=== PATIENT | male | born 1995 | race Caucasian/White ===

== ENCOUNTER 2024-04-09 13:39 | Emergency (ER) | payer SELFPAY ==
[2024-04-09] VITALS (13 sets, daily range): BP systolic 106–146; BP diastolic 58–119; BMI 40.4
[2024-04-09 14:37] LABS: % Basophils 0.5 % (0-2); % Eosinophils 0.9 % (0-6); % Immature Granulocytes 1.8 % (0-0.5); % Monocytes 7.6 % (1.7-9.3); % Neutrophils 51.2 % (42.2-75.2); Absolute Basophils 0.1 10^3/uL (0-0.2); Absolute Eosinophils 0.1 10^3/uL (0-0.7); Absolute Immature Granulocytes 0.2 10^3/uL (0-0.05); Absolute Lymphocytes 4.9 10^3/uL (1.2-3.4); Absolute Neutrophils 6.6 10^3/uL (1.4-6.5); Hematocrit 43.2 % (39.0-52.0); Hemoglobin 15.4 g/dL (13.0-18.0); Mean Corp Hgb Conc. 35.6 g/dL (33.0-37.0); Mean Corpuscular Hgb 28.4 pg (27.0-31.0); Mean Corpuscular Volume 79.6 fL (80.0-94.0); Mean Platelet Volume 8.9 fL (7.4-10.4); Nucleated Red Blood Cells % 0 % (-); Platelet Count 509 10^3/uL (130-400); Red Blood Cell Count 5.43 10^6/uL (4.70-6.10); Red Cell Dist. Width 13.2 % (11.5-14.5); White Blood Cell Count 12.9 10^3/uL (4.8-10.8)
--- NOTE | 2024-04-09 14:57 | ED.GENMED ---
History of Present Illness
General
Chief Complaint: Medication Reaction
Time Seen by Provider: 04/09/24 14:53
Travel History
Have you had any contact with someone who has COVID-19?: No
Do you have any symptoms of coronavirus? Fever > 100 degrees, chills, cough, shortness of breath, sore throat, loss of taste or smell, muscle aches, or headache?: No
History of Present Illness
History of Present Illness:
HPI: Patient took an edible at a higher dose than he typically does and shortly thereafter heart began pounding. His sister showed me a picture which showed it was '[employer] delta 9, 1250 mg' he took a small portion of this. He was also shaking.
Father states that he has been working a lot outside in the heat and frequently does sleep a lot at nighttime. Father feels that he does have undiagnosed LEEP apnea.
EXAM:
GENERAL:The patient appears somewhat sedate but eyes are open, he has some tremor noted to the upper extremities but not seizure activity,
HEENT: Moist oral mucosa, some nystagmus noted, mydriasis noted
CARDIOVASCULAR: No murmurs, tachycardic heart rate, regular rhythm, No chest wall tenderness
PULMONARY: No respiratory distress, breath sounds are clear and equal
ABDOMEN: Soft with no peritoneal signs, no tenderness
NEUROLOGIC: He has no focal neurologic deficits, see general exam above
PSYCHIATRIC: The patient appears to be somewhat sedate
EXTREMITIES: Nontender, no edema, moves all extremities equally
SKIN: No rash, no lesions
TIME OF INITIAL ENCOUNTER: 3 PM
NUMBER AND COMPLEXITY OF PROBLEMS ADDRESSED AT THE ENCOUNTER
� Chronic conditions affecting care: Has had pneumonia in the past
� Acute Exacerbation and/or Progression of Chronic Illness: This is an acute problem
� Differential Diagnosis includes: Edible adverse effect, dysrhythmia, electrolyte abnormality
AMOUNT AND/OR COMPLEXITY OF DATA TO BE REVIEWED AND ANALYZED
� I performed an independent evaluation of and my interpretation is:
EKG: Sinus 117, leftward axis deviation, nonspecific ST abnormality
CT: CT brain shows no acute abnormality
X-rays:
Laboratory Studies: White count 12.9, hemoglobin 15.4, troponin negative UDS positive for amphetamine and marijuana
Other:
� Review of other/old records: The patient was seen here in 2020 with with chest pain and had a negative troponin at that time
� Clinical information was obtained by an independent historian: Sister at bedside
� Prescriptions/Medications Considered but not given:
� Further testing considered but not performed:
RISK OF COMPLICATIONS AND/OR MORBIDITY OR MORTALITY OF PATIENT MANAGEMENT
� Social determinants of health affecting care: Lives at home
� Discussion with other providers:
� Escalation of care including admission/observation vs risk of discharge considered: Based on timing of symptoms, suspect the symptoms are related to the substance that he used earlier today. He was tachycardic upon arrival and
initially desat to the 80% was placed on nasal cannula oxygen briefly. Troponin negative. He is in a sinus rhythm. He was given Ativan as well as he does have tremor and has been tachycardic. On reassessment at 3:45 PM, vital signs improved
however the patient still has an altered mental status. Will continue to monitor. On reassessment at 7 PM, still rather altered. On reassessment at 9 PM, the patient was up walking around. ABG results reviewed. PaO2 very low however I talk to
respiratory and she states that the blood return was dark and came out slowly�suspect venous sample. pCO2 elevated which was drawn at the time he was more unresponsive. Currently he is awake talking and has reasonable insight and judgment. We did
talk about the possibility of sleep apnea as well.
Past History
Past History
ED Past Medical History: None
Social History
Personal: Single
Living: with family
Phy Exam
Physical Exam
Physical Exam:
See HPI
Course
Orders/Labs/Results
Orders:
Orders
04/09/24 13:50
Electrocardiogram (*1) Urgent
Reason for Study: Tachycardia
EKG- Treatment ONCE
04/09/24 14:27
IV Insert/Care/Rem.- Treatment PRN
04/09/24 14:29
Complete Blood Count/With Diff Urgent
Troponin I Urgent
04/09/24 14:58
Lorazepam [Ativan] 1 mg IV NOW STA
04/09/24 14:59
Comprehensive Metabolic Panel Urgent
04/09/24 15:03
0.9% Sodium Chloride 1000 ml [Nss] 1,000 ml IV BOLUS
0.9% Sodium Chloride 1000 ml [Nss] 1,000 ml IV BOLUS
04/09/24 17:10
CT Head W/o Iv Contrast Urgent
Comment:
Reason For Exam: altered mental status
04/09/24 17:11
Straight cath- Treatment ONCE
04/09/24 17:13
Drug Screen, Urine [Urine Drug Abuse Screen] Urgent
Date Specimen was Collected: 04/09/24
Time Specimen was Collected: 17:11
Fentanyl, Urine Urgent
04/09/24 19:57
ABG [Arterial Blood Gas] Urgent
%Oxygen/Room Air: 2lpm
Abnormal Lab Results
04/09/24 04/09/24 04/09/24
14:29 14:59 17:13
WBC 12.9 H 10^3/uL
(4.8-10.8)
MCV 79.6 L fL
(80.0-94.0)
Plt Count 509 H 10^3/uL
(130-400)
Abs Immat Gran (auto) 0.2 H 10^3/uL
(0-0.05)
Absolute Neuts (auto) 6.6 H 10^3/uL
(1.4-6.5)
Absolute Lymphs (auto) 4.9 H 10^3/uL
(1.2-3.4)
Absolute Monos (auto) 1.0 H 10^3/uL
(0.1-0.6)
Immature Gran % 1.8 H %
(0-0.5)
pH
pCO2
pO2
HCO3
ABG O2 Sat (Measured)
Glucose 175 H mg/dl
(70-99)
Total Protein 6.2 L g/dl
(6.3-8.2)
Ur Amphetamines Screen Positive H
(Negative)
U Marijuana (THC) Screen Positive H
(Negative)
04/09/24
19:57
WBC
MCV
Plt Count
Abs Immat Gran (auto)
Absolute Neuts (auto)
Absolute Lymphs (auto)
Absolute Monos (auto)
Immature Gran %
pH 7.34 L
(7.35-7.45)
pCO2 53 H mmHg
(35-48)
pO2 36 L* mmHg
(83-108)
HCO3 28.6 H mmol/L
(21-28)
ABG O2 Sat (Measured) 67.7 L %
(94-98)
Glucose
Total Protein
Ur Amphetamines Screen
U Marijuana (THC) Screen
04/09/24 14:29
04/09/24 14:59
Vital Signs
Initial and Last Documented VS:
Initial Vital Signs
Temp Pulse Resp BP Pulse Ox
98.8 F 124 16 141/93 97
04/09/24 13:46 04/09/24 13:46 04/09/24 13:46 04/09/24 13:46 04/09/24 13:46
Last Documented Vital Signs
Temp Pulse Resp BP Pulse Ox
98.8 F 96 21 144/79 95
04/09/24 13:46 04/09/24 20:29 04/09/24 20:29 04/09/24 21:00 04/09/24 21:00
*Critical Care Note
Total Time (30-74mins, 75-104mins- exclusive of procedures): 65min
comment:
I reassessed this patient multiple times throughout his stay in the ED. He was nearly unresponsive upon arrival. He was given supplemental oxygen, he had been protecting his airway. I reassessed the patient multiple times throughout his stay in
the ED. We initially did give a dose of benzos as he was tachycardic and somewhat tremulous. At 9 PM, the patient was reassessed and markedly improved.
ED Attending Note
-
Portions of this chart may have been created with voice recognition software.� Occasional wrong word or��sound alike� substitutions may have occurred due to the inherent limitations of voice recognition software.
Discharge Plan
Departure
Prescriptions:
No Action
No Current Medications
0
Referrals:
Carson Brewer DO [Family Provider] -
Interventions
Interventions:
*Risk Screen - Suicide Last Done: 04/09/24 14:20
*General Assessment Last Done: 04/09/24 14:20
*Neglect/Abuse Screening Last Done: 04/09/24 14:20
ED- Fall Risk Assessment Last Done: 04/09/24 14:20
*ED COVID-19 Vaccine History Last Done: 04/09/24 13:46
*Nursing Disposition Last Done: 04/09/24 21:06
ED-Skin Assessment Last Done: 04/09/24 14:20
ED- Pulmonary Assessment Last Done: 04/09/24 14:20
ED-EENT Assessment Last Done: 04/09/24 14:20
Discharge Date and Time
Print Language: ICELANDIC
[2024-04-09 15:01] LABS: Troponin I < 0.012 ng/ml
[2024-04-09] MEDS: ATIVAN 1 MG IV (15:06)
[2024-04-09] MEDS: NSS 1000 IV ×2 (15:06→15:07)
[2024-04-09 15:28] LABS: ALT (SGPT) 30 U/L (0-50); AST (SGOT) 25 U/L (17-59); Albumin 3.5 g/dl (3.5-5.0); Alkaline Phosphatase 62 U/L (38-126); Blood Urea Nitrogen 20 mg/dl (9-20); Calcium 8.7 mg/dl (8.4-10.2); Carbon Dioxide 27 mmol/L (22-30); Chloride 107 mmol/L (98-107); Estimated Creatinine Clearance > 125 ml/min; Glucose 175 mg/dl (70-99); Sodium 140 mmol/L (135-145); Total Bilirubin 0.4 mg/dl (0.2-1.3); Total Protein 6.2 g/dl (6.3-8.2); eGFR > 60.00
[2024-04-09 17:35] LABS: Amphetamines Positive (Negative); Barbiturates Negative (Negative); Benzodiazepines Negative (Negative); Buprenorphine Negative (Negative); Cocaine Negative (Negative); Marijuana Positive (Negative); Methadone Negative (Negative); Methamphetamines Negative (Negative); Opiates Negative (Negative); Phencyclidine Negative (Negative); Tricyclic Antidepressants Negative (Negative)
[2024-04-09 17:51] LABS: Fentanyl, Urine Negative (Negative)
[2024-04-09 20:08] LABS: B.E. 1.7 mmol/L; HCO3 28.6 mmol/L (21-28); O2 Saturation % 67.7 % (94-98); PCO2 53 mmHg (35-48); pH 7.34 (7.35-7.45)
[2024-04-09 20:11] LABS: PO2 36 mmHg (83-108)
== END 2024-04-09 21:24 | disposition home or self-care (01) ==
LOC: EMR 13:39
PROVIDERS: Emergency Medicine; EMERGENCY PHYSICIAN Emergency Medicine; FAMILY PHYSICIAN Family Medicine
DX: R00.2 Palpitations (principal); T50.905A Adverse effect of unspecified drugs, medicaments and biological substances, initial encounter; Y92.9 Unspecified place or not applicable
CPT/HCPCS: 99284; 70450; 80053; 80306; 80307; 82805; 84484; 85025; 93005

== ENCOUNTER 2024-09-08 08:07 | Emergency (ER) | payer OTHER, SELFPAY ==
[2024-09-08 08:08] VITALS: BP 165/93
--- NOTE | 2024-09-08 09:03 | ED.GENMED ---
History of Present Illness
General
Chief Complaint: Breathing Problem
Source: patient
Exam Limitations: none
Time Seen by Provider: 09/08/24 08:23
Nursing documentation reviewed up to this point in time: agreed with
History of Present Illness
History of Present Illness:
28-year-old male past medical history of smoking history presenting to the emergency department today with concerns of shortness of breath that woke him from his sleep 5 hours prior to arrival to the ER. Claims the symptoms mainly are in his throat
seem to feel better once upright. Had COVID 2 weeks ago which was uneventful. Denies any fevers has had some chills no nausea vomiting no chest pain. Some ongoing difficulty breathing.
Past History
Past History
ED Past Medical History: None
Social History
Personal: Single
Living: with family
Review of Systems
Review of Systems
Allergies reviewed?: Yes
All Other Systems: ROS reviewed and negative except as documented in HPI and ROS
Phy Exam
Physical Exam
Physical Exam:
GENERAL: Alert , in no apparent distress
EYE: pupils equal and reactive
NECK: Supple, no significant adenopathy.
ENT: Swollen uvula otherwise no significant tonsillar swelling grossly patent airway o/p clr, mmm.
CARDIAC: Regular rate and rhythm .
LUNGS: Clear breath sounds bilaterally, no acute respiratory distress, no wheezes/rales/rhonchi
ABDOMEN: Soft, without focal tenderness, no r/g, no cvat
NEUROLOGICAL: Alert and oriented, no focal neuro deficits
SKIN: Warm and dry, skin intact.
MUSCULOSKELETAL: No edema, well perfused.
PSYCH: Normal and appropriate interaction.
Course
Orders/Labs/Results
Orders:
Orders
09/08/24 08:12
Electrocardiogram (*1) Urgent
Reason for Study: Shortness of Breath
Other Reason for Exam: covid two wks ago
EKG- Treatment ONCE
09/08/24 08:33
Dexamethasone [Decadron] 10 mg PO NOW STA
Ibuprofen [Motrin] 800 mg PO NOW STA
Chest [CR Chest - 2 Views ] Urgent
Comment:
Reason For Exam: sob
Soft Tissue, Neck [CR Soft Tissue Neck ] Urgent
Comment:
Reason For Exam: neck pain sob
09/08/24 08:35
Penicillin V Potassium [Pen Vk] 500 mg PO NOW STA
09/08/24 09:29
BMP [Basic Metabolic Panel] Urgent
CBC/With Diff [Complete Blood Count/With Diff] Urgent
Abnormal Lab Results
09/08/24
09:29
Abs Immat Gran (auto) 0.2 H 10^3/uL
(0-0.05)
Immature Gran % 2.0 H %
(0-0.5)
BUN 26 H mg/dl
(9-20)
Glucose 107 H mg/dl
(70-99)
09/08/24 09:29
09/08/24 09:29
Vital Signs
Initial and Last Documented VS:
Initial Vital Signs
Temp Pulse Resp BP Pulse Ox
98.8 F 92 16 165/93 98
09/08/24 08:08 09/08/24 08:08 09/08/24 08:08 09/08/24 08:08 09/08/24 08:08
Last Documented Vital Signs
Temp Pulse Resp BP Pulse Ox
98.8 F 86 16 140/80 97
09/08/24 08:08 09/08/24 10:02 09/08/24 10:02 09/08/24 10:02 09/08/24 10:02
MDM/Problems Addressed
MDM/Problems Addressed:
28-year-old male presenting to the emergency department today with concerns of some tightening to his throat and shortness of breath that woke him from sleep a few hours ago on arrival hypertensive otherwise vital signs are normal. Uvula swollen on
examination remainder of the posterior pharynx normal in appearance grossly patent airway normal breathing on examination clear lung. X-rays of the chest and neck without emergent findings. Labs unremarkable patient feeling better after
medications here stable for outpatient management. Patient with likely uvulitis with visualized swelling of the uvula which appears to be consistent with patient's symptoms. Return precautions given.
*Critical Care Note
Total Time (30-74mins, 75-104mins- exclusive of procedures): Not Applicable
ED Attending Note
-
Portions of this chart may have been created with voice recognition software.� Occasional wrong word or��sound alike� substitutions may have occurred due to the inherent limitations of voice recognition software.
Discharge Plan
Departure
Patient Disposition: Home (Routine Discharge)
Date of Disposition: 09/08/24
Time of Disposition: 10:24
Patient with high blood pressure during this ER visit?: No
Condition: Good
Covid-19: Not Applicable
Discharge Problem:
Uvulitis
Prescriptions:
New
prednisone 20 mg tablet
40 mg PO DAILY 3 Days Qty: 6 0RF
penicillin V potassium 500 mg tablet
500 mg PO BID 7 Days Qty: 14 0RF
Referrals:
NONE,* [Family Provider] -
Activity Restrictions/Additional Instructions:
You came to the emergency department today were found to have uvulitis. Please take the prescribed medications to help with symptoms and follow-up closely with your primary care doctor within 1 week for reassessment. Return to the emergency
department for any worsening, new or concerning symptoms.
Interventions
Interventions:
*Risk Screen - Suicide Last Done: 09/08/24 08:08
*General Assessment Last Done: 09/08/24 09:33
*Neglect/Abuse Screening Last Done: 09/08/24 08:08
ED- Fall Risk Assessment Last Done: 09/08/24 09:32
*ED COVID-19 Vaccine History Last Done: 09/08/24 09:32
ED- Cardiac Assessment Last Done: 09/08/24 09:32
ED- Pulmonary Assessment Last Done: 09/08/24 09:32
Discharge Date and Time
Print Language: TOGOLESE
[2024-09-08] MEDS: DECADRON 10 MG PO (09:22)
[2024-09-08] MEDS: MOTRIN 800 MG PO (09:22)
[2024-09-08] MEDS: PEN VK 500 MG PO (09:22)
[2024-09-08 09:47] LABS: % Basophils 0.5 % (0-2); % Eosinophils 1.2 % (0-6); % Lymphocytes 24.7 % (20.5-51.1); % Monocytes 7.4 % (1.7-9.3); % Neutrophils 64.2 % (42.2-75.2); Absolute Eosinophils 0.1 10^3/uL (0-0.7); Absolute Immature Granulocytes 0.2 10^3/uL (0-0.05); Absolute Lymphocytes 1.9 10^3/uL (1.2-3.4); Absolute Monocytes 0.6 10^3/uL (0.1-0.6); Absolute Neutrophils 4.9 10^3/uL (1.4-6.5); Hematocrit 43.1 % (39.0-52.0); Hemoglobin 15.2 g/dL (13.0-18.0); Mean Corp Hgb Conc. 35.3 g/dL (33.0-37.0); Mean Corpuscular Hgb 28.6 pg (27.0-31.0); Mean Corpuscular Volume 81.2 fL (80.0-94.0); Mean Platelet Volume 9.1 fL (7.4-10.4); Nucleated Red Blood Cells % 0 % (-); Platelet Count 371 10^3/uL (130-400); Red Blood Cell Count 5.31 10^6/uL (4.70-6.10); Red Cell Dist. Width 12.7 % (11.5-14.5); White Blood Cell Count 7.6 10^3/uL (4.8-10.8)
[2024-09-08 09:53] LABS: Blood Urea Nitrogen 26 mg/dl (9-20); Calcium 9.6 mg/dl (8.4-10.2); Carbon Dioxide 28 mmol/L (22-30); Chloride 101 mmol/L (98-107); Glucose 107 mg/dl (70-99); Potassium 4.3 mmol/L (3.5-5.1); Sodium 140 mmol/L (135-145); eGFR > 60.00
[2024-09-08 10:02] VITALS: BP 140/80
[2024-09-08 10:41] VITALS: BP 136/78
== END 2024-09-08 10:41 | disposition home or self-care (01) ==
LOC: EMR 08:07
PROVIDERS: Physician Assistant; EMERGENCY PHYSICIAN Emergency Medicine
DX: K12.2 Cellulitis and abscess of mouth (principal); Z87.891 Personal history of nicotine dependence
CPT/HCPCS: 99283; 70360; 71046; 80048; 85025; 93005